=== PATIENT | female | born 1965 | race Caucasian/White ===

== ENCOUNTER 2022-06-03 07:30 | Inpatient (IN) | payer MEDICARE, MEDICAID ==
[~2022-06-03] VITALS: Ht 172.1 cm; Wt 119.3 kg
[2022-06-17 12:18] LABS: BASOPHILS # (AUTO) 0.1 X10'3 (0-0.2); BASOPHILS % (AUTO) 1.2 % (0-1); EOSINOPHILS # (AUTO) 0.3 X10'3 (0-0.9); EOSINOPHILS % (AUTO) 4.9 % (0-6); LYMPHOCYTES # (AUTO) 2.6 X10'3 (1.1-4.8); LYMPHOCYTES % (AUTO) 37.2 % (21-51); MEAN CORPUSCULAR HEMOGLOBIN 29.1 PG (27.0-31.0); MEAN CORPUSCULAR HGB CONC 32.6 g/dL (33.0-36.5); MEAN CORPUSCULAR VOLUME 89.3 FL (78-98); MEAN PLATELET VOLUME 9.2 FL (7.4-10.4); MONOCYTES # (AUTO) 0.5 X10'3 (0-0.9); MONOCYTES % (AUTO) 7.3 % (2-12); NEUTROPHILS # (AUTO) 3.4 X10'3 (1.8-7.7); NEUTROPHILS % (AUTO) 49.4 % (42-75); PRE OP HEMATOCRIT 44.1 % (35.0-45.0); PRE OP HEMOGLOBIN 14.4 g/dL (12.0-16.0); PRE OP PLATELET COUNT 280 X10'3 (140-440); RED BLOOD COUNT 4.93 X10'6 (4.20-5.60); RED CELL DISTRIBUTION WIDTH 14.4 % (11.5-14.5)
[2022-06-17 12:26] LABS: ALBUMIN 4.3 G/DL (3.4-5.0); ALBUMIN/GLOBULIN RATIO 1.4 (1.1-1.5); ALKALINE PHOSPHATASE 113 IU/L (46-116); BLOOD UREA NITROGEN 13 MG/DL (7-18); BUN/CREATININE RATIO 19.7 (6.6-38.0); CALCIUM 9.5 MG/DL (8.5-10.1); CHLORIDE 108 MMOL/L (99-107); CREATININE 0.66 MG/DL (0.40-0.90); PRE OP ALT 38 U/L (30-65); PRE OP ANION GAP 10 (8-16); PRE OP AST 26 U/L (10-37); PRE OP BILIRUB, TOTAL 0.6 MG/DL (0.0-1.0); PRE OP GLUCOSE 97 MG/DL (70-104); PRE OP POTASSIUM 3.8 MMOL/L (3.4-5.1); PRE OP SODIUM 145 MMOL/L (135-145); TOTAL CARBON DIOXIDE 27.5 MMOL/L (24-32); TOTAL PROTEIN 7.3 G/DL (6.4-8.2); eGFR > 90 ML/MIN
[2022-06-17] MEDS ORDERED: FAMO20TA8 PO (12:47)
[2022-06-17] MEDS ORDERED: VILA40TA PO (12:47)
[2022-06-17] MEDS ORDERED: ATOR40TA PO (12:47)
[2022-06-17] MEDS ORDERED: FENO145T38 PO (12:47)
[2022-06-17] MEDS ORDERED: MELO-102 PO (12:47)
[2022-06-17] MEDS ORDERED: BUSP10TA11 PO (12:47)
[2022-06-17] MEDS ORDERED: GABA600T13 PO (12:47)
[2022-06-17] MEDS ORDERED: METF-436 PO (12:47)
[2022-06-24] VITALS (19 sets, daily range): BP systolic 101–131; BP diastolic 59–87
[2022-06-24] MEDS ORDERED: ringers solution, lacted 1,000 ML IV SCH ×2 (05:00→14:05)
[2022-06-24] MEDS ORDERED: tranexamic acid 650mg tablet PO ONE (05:30)
[2022-06-24] MEDS ORDERED: vancomycin 1,500 MG in NS 300ml IV soln IV ONE (05:30)
[2022-06-24] MEDS ORDERED: ceFAZolin inj. 3,000 MG in normal saline 100ml IV soln 100 ML IV ONE (05:30)
[2022-06-24] MEDS ORDERED: famotidine 20mg tablet PO ONE (05:30)
[2022-06-24] MEDS ORDERED: ROPIVAcaine 0.5% (5mg/ml) 30ml vial ONE ×2 (12:33→14:49)
[2022-06-24] MEDS ORDERED: fentaNYL/PF 50MCG/1 ML 2ML syringe ONE (13:02)
[2022-06-24] MEDS ORDERED: MIDAZolam 1 MG/ML 5ML VIAL ONE (13:04)
[2022-06-24] MEDS ORDERED: morphine 2 MG/ML inj. syringe IV PRN (14:05)
[2022-06-24] MEDS ORDERED: ondansetron/PF 4mg/2ml inj IV PRN ×2 (14:05→15:05)
[2022-06-24] MEDS ORDERED: morphine 4 MG/ML inj SYRINge IV PRN (14:05)
[2022-06-24] MEDS ORDERED: ROPIVAcaine 0.2%/PF PUMP/bolus 545 ML INTERSCALE SCH (14:05)
[2022-06-24] MEDS ORDERED: ROPIVAcaine 0.2% (10 MG/5 ML) BOLUS INJECTION INTERSCALE PRN (14:05)
[2022-06-24] MEDS ORDERED: proCHLORperazine 10 MG/2 ml inj IV PRN (14:05)
[2022-06-24] MEDS ORDERED: meperidine/PF 25mg/ml syringe IV PRN ×3 (14:05)
[2022-06-24] MEDS ORDERED: propofol inj 20 ML IV ONE (14:49)
--- NOTE | 2022-06-24 15:02 | NUR ---
Received from OR via BED, accompanied by Anesthesiologist DR. TORRES and report given by Anesthesiolgist AND OR NURSE. PT IS DROWSY ON 10L OF 02 VIA MASK. VSS. 20G IV TO LEFT WRIST RUNNING LR. PT RIGHT SHOULDER IS WRAPPED WITH POWDER PACK APPLIED AND SLING, C/D/I. ONQ CATHETER TAPPED ON LEFT SHOULDER. PT HAS SLIGHT FEELING IN RIGHT HAND BUT IT IS STILL TINGLING. RIGHT HAND CAP REFILL <3 SEC, NO SWELLING, RADIAL PULSE STRONG. WILL CONTINUE TO MONITOR. Addendum: 06/24/22 at 1535 by Jennifer Alexander RN Amended: Links added.
[2022-06-24] MEDS ORDERED: potassium cl 20mEq in 1/2 NS 1,000 ML IV SCH (15:05)
[2022-06-24] MEDS ORDERED: bisacodyl 10mg suppository rectal RC PRN (15:05)
[2022-06-24] MEDS ORDERED: acetaminophen 325mg tablet PO PRN (15:05)
[2022-06-24] MEDS ORDERED: HYDROcodone/acetaminophen 10/325mg tab PO PRN ×2 (15:05)
[2022-06-24] MEDS ORDERED: HYDROmorphone 1 mg/ml syringe IV PRN (15:05)
[2022-06-24] MEDS ORDERED: diphenhydrAMINE 25mg capsule PO PRN ×2 (15:05)
[2022-06-24] MEDS ORDERED: oxyCODONE IR 5mg (immed. release) tablet PO PRN ×2 (15:05)
[2022-06-24] MEDS ORDERED: magnesium hydroxide 30ml (MOM) UD suspension PO PRN (15:05)
[2022-06-24] MEDS ORDERED: naloxone 0.4 mg/ml inj IV PRN (15:05)
[2022-06-24] MEDS ORDERED: HYDROmorphone inj. 0.5 MG/0.5 ML DISP.SYRIN IV PRN (15:05)
[2022-06-24] MEDS ORDERED: ceFAZolin/D5W- 1GM premix 50 ML IV SCH (16:00)
--- NOTE | 2022-06-24 17:32 | NUR ---
Report called to receiving nurse AISHA SOMMER. Transferred via BED WITH ALL BelongingS. Special Issues communicated to receiving nurse. PT VSS. R SHOULDER DRESSING C/D/I. ONQ CONNECTED AND RUNNING. PT EDUCATED ABOUT PROPER USE OF ONQ. PT TRANSPORTED TO ROOM WHERE ASSUMING NURSE WAS AT BEDSIDE. BED LOCKED IN LOW POSITION. CALL LIGHT GIVEN. Addendum: 06/24/22 at 1750 by Jennifer Alexander RN Amended: Links added.
--- NOTE | 2022-06-24 18:18 | NUR ---
Called Dr Hubbard. Pt wants to leave AMA. No complications, will have pt sign form and education risks, including from complications.
--- NOTE | 2022-06-24 18:43 | NUR ---
Called Mir[facility] #[phone] and let her know pt wants to leave AMA. She will pickers material handlers pt. Advising AISHA Hebert for this noc Addendum: 06/24/22 at 1856 by Gail Lundberg RN Instructed pt and partner, no lifting, s/sx infection & hemorrhage, don't remove the dressing/no showers/stay dry. Call Surgeon's office and make a FU appt for stitches, etc. Call and FU with PCP in one week. Marked dressing R shoulder drainage and told them to keep an eye on it.
[2022-06-24] MEDS ORDERED: famotidine 20mg tablet PO SCH (20:00)
[2022-06-24] MEDS ORDERED: busPIRone 5mg tablet PO SCH (20:00)
[2022-06-24] MEDS ORDERED: metFORMIN 500mg tablet PO SCH (20:00)
[2022-06-24] MEDS ORDERED: vancomycin/NS 1 GM ADD-VANTAGE 250 ML IV SCH (20:00)
[2022-06-24] MEDS ORDERED: sennosides 8.6mg tablet PO SCH (21:00)
[2022-06-24] MEDS ORDERED: gabapentin 300mg capsule PO SCH (21:00)
[2022-06-25] MEDS ORDERED: naproxen 500mg tablet PO SCH (08:00)
[2022-06-25] MEDS ORDERED: fenofibrate 145mg tablet PO SCH (08:00)
[2022-06-25] MEDS ORDERED: atorvastatin 20mg tablet PO SCH (08:00)
[2022-06-25] MEDS ORDERED: aspirin 325mg tablet PO SCH (08:30)
== END 2022-06-24 18:00 | disposition left against medical advice (07) | DRG 483 ==
LOC: PAS IN 06-24 08:23 → SUR 3N 06-24 17:46
PROVIDERS: ADMIT Orthopaedic Surgery; ATTEND Orthopaedic Surgery
PROC: 0LS30ZZ Reposition Right Upper Arm Tendon, Open Approach (ICD-10-PCS; 2022-06-24)
PROC: 3E0T3BZ Introduction of Anesthetic Agent into Peripheral Nerves and Plexi, Percutaneous Approach (ICD-10-PCS; 2022-06-24)
PROC: 0RRJ00Z Replacement of Right Shoulder Joint with Reverse Ball and Socket Synthetic Substitute, Open Approach (ICD-10-PCS; principal; 2022-06-24 12:58)
DX: M19.011 Primary osteoarthritis, right shoulder (principal); M75.121 Complete rotator cuff tear or rupture of right shoulder, not specified as traumatic; Z53.29 Procedure and treatment not carried out because of patient's decision for other reasons; M75.21 Bicipital tendinitis, right shoulder; M65.811 Other synovitis and tenosynovitis, right shoulder
CPT/HCPCS: 36415; 71046; 80053; 82948; 85025; 87081; A4565; A4618; A7000; C1776; G0378; J2250; J2704; J2795; J3010; J3370; J3490; J7120